=== PATIENT | female | born 1950 | race Caucasian/White ===

== ENCOUNTER → 2020-08-07 | Day surgery (SDC) | payer MEDICARE ==
[~2020-08-07] VITALS: Ht 147.3 cm; Wt 72.6 kg
[~2020-08-07] MED LIST: CETIRIZINE HCL10 MG PO; CLONIDINE HCL0.1 MG PO; COLACE100 MG PO; COZAAR100 MG PO; DEXAMETHASONE4 MG PO; FOLIC ACID1 M1 PO; JARDIANCE25 MG PO; METFORMIN HCL500 M3 PO; MOTRIN600 MG PO; NORCO 5-325 TA1 EACH PO; PROCHLORPERAZIN10 M1 PO; ROSUVASTATIN CA40 MG PO; VENTOLIN (2.5 MG/3 M INH; VITAMIN D310 MC3 PO
== END | disposition home or self-care (01) ==
LOC: FAS 12:13
DX: C50.912 Malignant neoplasm of unspecified site of left female breast (principal); E11.9 Type 2 diabetes mellitus without complications; J45.909 Unspecified asthma, uncomplicated; I10 Essential (primary) hypertension; E78.00 Pure hypercholesterolemia, unspecified; E55.9 Vitamin D deficiency, unspecified; Z17.0 Estrogen receptor positive status [ER+]; Z87.891 Personal history of nicotine dependence; Z79.84 Long term (current) use of oral hypoglycemic drugs; Z79.899 Other long term (current) drug therapy; Z88.0 Allergy status to penicillin; Z88.5 Allergy status to narcotic agent; Z88.6 Allergy status to analgesic agent; Z88.8 Allergy status to other drugs, medicaments and biological substances
CPT/HCPCS: 71045; 76000; 77001; 82962; 93005; C1788; J0690; J1100; J1644; J1885; J2001; J2250; J2405; J2704; J3010; J7120

== ENCOUNTER → 2022-01-21 | Day surgery (SDC) | payer MEDICARE, OTHER ==
[~2022-01-21] VITALS: Ht 144.8 cm; Wt 68.0 kg
[~2022-01-21] MED LIST changes: +ANASTROZOLE1 M1 PO; +BACTRIM 400-801 EACH PO; +CALAN 80MG TABL80 MG PO; +FARXIGA5 MG PO; +MONTELUKAST SOD10 MG PO; +ULTRAM50 MG PO; +VITAMIN D21250 MCG PO
[2022-01-21 09:03] LABS: BUN/CREAT RATIO (CALC) 16.7 RATIO; CREATININE 0.78 mg/dL (0.51-0.95); POTASSIUM 3.6 mmol/L (3.5-5.1)
== END | disposition home or self-care (01) ==
LOC: FAS 07:15
PROVIDERS: Student in an Organized Health Care Education/Training Program
DX: Z95.828 Presence of other vascular implants and grafts (principal); E11.9 Type 2 diabetes mellitus without complications; I10 Essential (primary) hypertension; E55.9 Vitamin D deficiency, unspecified; Z85.3 Personal history of malignant neoplasm of breast
CPT/HCPCS: 36415; 80048; J1100; J1885; J2250; J2405; J2704; J3010; J3370; J7050; J7120